=== PATIENT | male | born 1975 | race Caucasian/White ===

== ENCOUNTER 2019-12-21 13:13 | Emergency (ER) | payer BC ==
[2019-12-21] MEDS ORDERED: Diphtheria,Pertussis(Acell),Tetanus Vaccine 0.5 ML Syringe IM ONE (13:29)
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
--- NOTE | 2019-12-22 11:02 | CR ---
Right hand: 4 views of the right hand were obtained. Comparison: No prior right hand study is available. Deformity of the distal radius compatible with old healed fracture. Joint spaces within the hand are preserved. No discrete fracture, dislocation or other bony abnormality is appreciated. Impression: 1. Mild deformity compatible with old healed fracture within the distal right radius. 2. Right hand exam shows nothing acute. Diagnostic code #2 This report was dictated in MDT
== END 2019-12-21 14:35 | disposition home or self-care (01) ==
LOC: JD.ED 13:13
DX: S61.411A Laceration without foreign body of right hand, initial encounter (principal); Z23 Encounter for immunization; Z88.5 Allergy status to narcotic agent; W25.XXXA Contact with sharp glass, initial encounter
CPT/HCPCS: 73130-26-RT; 73130-RT; 90471; 90715; 99282; 99283-25